=== PATIENT | male | born 1985 | race African-American/Black ===

== ENCOUNTER 2020-01-13 12:06 | Day surgery (SDC) | payer OTHER, SELFPAY ==
[2020-01-13] VITALS (8 sets, daily range): BP systolic 105–129; BP diastolic 59–80; PULSE 55–75; RESP 11–18; TEMP 36.2–36.4; O2SAT 98–100; BMI 24.7
--- NOTE | 2020-01-13 | PATH_ITS ---
[facility] Accession Number: [id number] . 01 Material submitted: . PART A: gastrointestinal site - GASTRIC BIOPSIES PART B: esophagus - ESOPHAGEAL BIOPSIES . 01 Clinical history: . SDC B: RULE OUT EOE . 02 Diagnosis: A. Stomach, Biopsies: Gastric antral mucosa with mild chronic inflammation. Gastric body mucosa with no diagnostic abnormality. Negative for Helicobacter organisms by immunohistochemistry. Negative for intestinal metaplasia. Negative for dysplasia or malignancy. . B. Esophagus, Biopsies: Squamous epithelium with no diagnostic abnormality. Intraepithelial eosinophils are not increased. Negative for dysplasia and malignancy. MRV 01/18/2020 1410 Local . 02 Electronically signed: . Gonzales Wu MD, PhD, Pathologist NPI- [id number] . 01 Gross description: . Part A: GASTRIC BIOPSIES: Received in formalin are 3 fragment(s) of kulkarni, soft tissue measuring 0.4 x 0.3 x 0.2 cm to 0.2 x 0.2 x 0.1 cm submitted entirely in 1 cassette(s) Part B: ESOPHAGEAL BIOPSIES: Received in formalin are 3 fragment(s) of kulkarni, soft tissue measuring 0.3 x 0.3 x 0.1 cm to 0.2 x 0.2 x 0.1 cm submitted entirely in 1 cassette(s) /QBJ 01/14/2020 0700 Local . 02 Microscopic: . A) An immunohistochemical stain was performed to evaluate for Helicobacter organisms and is negative. The control stain showed appropriate reactivity. . * This test was developed and its performance characteristics determined by [facility]. It has not been cleared or approved by the [place]. Food and Drug Administration. The FDA has determined that such clearance or approval is not necessary. This test is used for clinical purposes. It should not be regarded as investigational or for research. . 02 Pathologist provided ICD-10: R13.10, K29.70 . 02 CPT . 267901, 472636, [id number] Performed at: 01 [facility] [address] [id number] MD Dajuan Ramirez MD Phone: [phone] Performed at: 02 [facility] [address] [place], [place] [id number] MD Maria Isabel Hernandez MD Phone: [phone]
[2020-01-13 12:59] LABS: COVID19 -Nasal RAPID Negative (Negative)
[2020-01-13] MEDS: SODIUM CHLORIDE 0.9% 1,000 ML 84 ML IV (13:36)
--- NOTE | 2020-01-13 14:03 | PM.PREOP ---
Pre-operative Note COVID-19 COVID-19 status: Negative Interval Note History & Physical reviewed/Exam performed by Physician: Yes Changes to H&P: No ASA Class (for procedural sedation): I
--- NOTE | 2020-01-13 14:03 | PM.OP.ENDO ---
Operative Date/Time/Diagnoses Date of procedure: 01/13/20 Pre-op diagnosis: See indication and findings Procedure & Clinicians Study performed: EGD Same procedure as scheduled: Yes Indications: GE reflux dysphagia and epigastric pain Surgeon: Shelly Carrasco Procedure Notes Procedure in detail: After informed consent was obtained the patient was placed in left lateral decubitus position. Video upper scope placed into the oropharynx and with the patient's help swelled into the esophagus. The esophagus stomach and duodenum were carefully examined. On withdrawal retroflexed view the GE junction was performed. The scope was removed. The patient tolerated procedure well. Blood loss none Complications none Sedation Total sedation time 11 minutes Versed 8 mg fentanyl 100 micro g IV titration Findings 1. 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 Biopsies taken to rule out eosinophilic esophagitis 2. Patchy gastric erythema in the antrum biopsies taken to rule out Helicobacter. There was 1 small erosion he had a pre-pyloric position. 3. Normal duodenal bulb and sweep Will be in touch regarding his pathology results. In the meantime will discontinue his current medications.
[2020-01-13] MEDS: MIDAZOLAM 5 MG/5 ML VIAL IV (14:25)
[2020-01-13] MEDS: fentaNYL 250 MCG/5 ML INJ IV (14:25)
--- NOTE | 2020-01-13 15:26 | SUR.PHASEII ---
1520 Pt alert and oriented. Ride won't be here for over an hour. Pt tolerating PO well, no disccomfort, dizziness. Wants to get dressed. IV dc'd, clothes given.
--- NOTE | 2020-01-13 16:30 | SUR.PHASEII ---
1620 Pt has been sitting comfortable, waiting for his friend to get off work and pick him up. Very hungry, peanut butter toast and coffee given by Chato Gupta RN. Cam.
== END 2020-01-13 16:35 | disposition home or self-care (01) ==
PROVIDERS: PCP Anesthesiology; Referring Provider Internal Medicine Gastroenterology; Visit Provider Internal Medicine Gastroenterology
PROC: 0DJ08ZZ Inspection of Upper Intestinal Tract, Via Natural or Artificial Opening Endoscopic (ICD-10-PCS; CPT 43235; principal; 2020-01-13 14:00)
DX: K29.50 Unspecified chronic gastritis without bleeding (principal); K21.9 Gastro-esophageal reflux disease without esophagitis; Z11.59 Encounter for screening for other viral diseases
CPT/HCPCS: 43239; 87635; J2250; J3010